=== PATIENT | male | born 1955 | race Two or more races ===

== ENCOUNTER 2016-12-30 19:14 | Emergency (ER) | payer OTHER ==
[2016-12-30 19:26] VITALS: BP 157/76; PULSE 96; TEMP 102.1; BMI 26.3
[2016-12-30] MEDS ORDERED: ACETAMINOPHEN 500 MG TABLET (FP) PO ONE (19:42)
[2016-12-30] MEDS ORDERED: ACETAMINOPHEN 325 MG TABLET (FP) ONE (19:46)
--- NOTE | 2016-12-30 19:56 | PDOC ---
History of Present Illness - General Chief Complaint: Sore Throat Stated Complaint: FEVER/BODY ACHES Time Seen by Provider: 12/30/16 19:27 History Source: Patient Exam Limitations: No Limitations - History of Present Illness Initial Comments: 12/30/16 19:46 61-year-old male presents the ED with sudden onset of fever at 3 AM followed by sore throat, patient states has been taking Tylenol 325 mg every 6 hours with minimal relief. Patient states no difficulty swallowing, recent illness, recent travel, or recent sick contacts. 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 Ferreira for his primary care physician. Patient states history of diabetes which which she states is controlled with his last BGM being 132 this morning. Timing/Duration: reports: this morning Possible Cause: Yes: no prior episodes Associated Symptoms: reports: cough, fever/chills, sore throat Past History - Past Medical History Allergies/Adverse Reactions: Allergies Allergy/AdvReac Type Severity Reaction Status Date / Time ibuprofen Allergy Verified 12/30/16 19:23 Penicillins Allergy Verified 12/30/16 19:23 Home Medications: Ambulatory Orders Amlodipine/Valsartan [Exforge 10-160 mg Tablet] each PO DAILY 10/27/12 Metoprolol Succinate [Toprol XL] 25 mg PO DAILY #0 tab.sr.24h 10/28/12 Rosuvastatin Calcium [Crestor] 10 mg PO HS #0 tablet 10/28/12 Ondansetron [Zofran *Odt*] 4 mg SL TID #30 od.tablet 09/26/16 Diabetes: Yes HTN: Yes Hypercholesterolemia: Yes - Psycho/Social/Smoking Cessation Hx Anxiety: No Suicidal Ideation: No Smoking Status: No Smoking History: Unknown if ever smoked Have you smoked in the past 12 months: No Number of Cigarettes Smoked Daily: 0 Hx Alcohol Use: No Drug/Substance Use Hx: No Substance Use Type: None Patient Lives Alone: No Lives with/in: spouse/SO Respiratory Specific PMHX - Complaint Specific PMHX Angina: No Review of Systems - Review of Systems Able to Perform ROS?: Yes Constitutional: Yes: Chills, Fever HEENTM: Yes: Throat Pain Respiratory: No: Symptoms reported ABD/GI: No: Symptoms Reported : No: Symptoms Reported Musculoskeletal: No: Symptoms Reported Integumentary: No: Symptoms Reported Neurological: No: Symptoms reported *Physical Exam - Vital Signs Last Vital Signs Temp Pulse Resp BP Pulse Ox 102.1 F H 96 H 18 157/76 97 12/30/16 19:24 12/30/16 19:24 12/30/16 19:24 12/30/16 19:24 12/30/16 19:24 - Physical Exam General Appearance: Yes: Nourished, Appropriately Dressed. No: Apparent Distress HEENT: positive: EOMI, KAREN, TMs Normal (right, left with erythema with clear fluid near whitish area on TM), Pharynx Normal (no exudate, no erythema). negative: Pale Conjunctivae Neck: positive: Supple Respiratory/Chest: positive: Lungs Clear, Normal Breath Sounds. negative: Respiratory Distress, Accessory Muscle Use Cardiovascular: positive: Regular Rhythm, Regular Rate. negative: Murmur Gastrointestinal/Abdominal: positive: Soft. negative: Tenderness Integumentary: positive: Normal Color, Warm, Moist Neurologic: positive: Motor Strength 5/5 Medical Decision Making - Medical Decision Making 12/30/16 19:51 Pt with fever, sore throat, with dry cough since 3am this am. Pt took tylenol this am (325mg) with minimal effect. pt on exam had erythematous left TM and mild erythema to post pharynx. He is allergic to Motrin. Influenza and rapid strep sent. 12/30/16 20:18 Positive for strep. Negative for influenza. Patient be discharged home with azithromycin. Patient also to follow-up with his PCP. *DC/Admit/Observation/Transfer Diagnosis at time of Disposition: Acute streptococcal pharyngitis - Discharge Dispostion Disposition: HOME Condition at time of disposition: Good - Referrals Referrals: Naomy Ferreira MD [Primary Care Provider] - - Patient Instructions Printed Discharge Instructions: DI for Strep Throat Additional Instructions: Please take antibiotics until completed. Please take Tylenol 650-975 mg every 6 hours adequate pain and fever control. Please follow-up with your PCP and to return to ED if symptoms worsen.
== END 2016-12-30 20:31 | disposition home or self-care (01) ==
LOC: JERFT 19:14
DX: J02.0 Streptococcal pharyngitis (principal); B95.0 Streptococcus, group A, as the cause of diseases classified elsewhere; I10 Essential (primary) hypertension; E11.9 Type 2 diabetes mellitus without complications; E78.00 Pure hypercholesterolemia, unspecified
CPT/HCPCS: 87070; 87430; 87804; 99281-25